=== PATIENT | female | born 1985 | race Caucasian/White ===

== ENCOUNTER 2020-08-14 15:04 | Emergency (ER) | payer BC ==
[~2020-08-14] VITALS: Ht 175.3 cm; Wt 99.8 kg
[2020-08-14 15:15] VITALS: BP 198/98
[2020-08-14] MEDS ORDERED: FLONASE 0.05%50 MCG NARES (15:17)
[2020-08-14] MEDS ORDERED: IBUPROFEN 800800 M1 PO (16:52)
[2020-08-14] MEDS ORDERED: CENTANY30 GM TOP (16:58)
== END 2020-08-14 17:07 | disposition home or self-care (01) ==
LOC: M.ERS 15:04
DX: S93.691A Other sprain of right foot, initial encounter (principal); X50.1XXA Overexertion from prolonged static or awkward postures, initial encounter; Y93.39 Activity, other involving climbing, rappelling and jumping off; Y92.89 Other specified places as the place of occurrence of the external cause; Y99.8 Other external cause status

== ENCOUNTER → 2020-08-24 | Outpatient (CLI) | payer BC ==
[~2020-08-24] MED LIST: CENTANY30 GM TOP; FLONASE 0.05%50 MCG NARES; IBUPROFEN 800800 M1 PO
== END ==
LOC: M.MRI 11:30
PROVIDERS: ATTEND Nurse Practitioner
DX: S99.921D Unspecified injury of right foot, subsequent encounter (principal); M19.071 Primary osteoarthritis, right ankle and foot; M79.89 Other specified soft tissue disorders; X58.XXXD Exposure to other specified factors, subsequent encounter